=== PATIENT | male | born 1940 | race Caucasian/White ===

== ENCOUNTER 2024-05-11 22:15 | Emergency (ER) | payer MEDICARE, SELFPAY ==
[2024-05-11 22:21] VITALS: PULSE 64; RESP 18; O2SAT 98
[2024-05-11 22:37] VITALS: BP 180/81; PULSE 76; RESP 20; TEMP 36.6; O2SAT 99
[2024-05-11 22:43] VITALS: BMI 22.8
--- NOTE | 2024-05-11 22:47 | EDNOTE_ITS ---
ED Fall Injury RME/HPI General Chief Complaint: Fall Stated Complaint: FALL, HEAD LAC Time Seen by Provider: 05/11/24 22:42 Arrival date/time: 05/11/24 22:15 RME / HPI RME / HPI Narrative: 84-year-old male [facility] laceration. Patient was walking towards the restroom, and hit sticking metal, resulting into 3 cm gaping laceration to the scalp. Patient denies any LOC denies any headache denies any neck pain denies any fall. Patient is not taking any blood thinner Related Data Home Medications ?Medication ?Instructions ?Recorded ?Confirmed valsartan 320 mg tablet (Diovan) 320 mg PO QDAY #0 tabs 04/14/15 lisdexamfetamine 40 mg capsule 40 mg PO QDAY 03/27/24 03/27/24 Previous Rx's ?Medication ?Instructions ?Recorded chlorthalidone 25 mg tablet 25 mg PO QDAY 30 days #0 tabs 06/25/15 quetiapine 25 mg tablet (Seroquel) 25 mg PO HS PRN withdrawal 03/29/24 symptoms #30 tabs Allergies Allergy/AdvReac Type Severity Reaction Status Date / Time No Known Allergies Allergy Verified 03/26/24 17:57 Review of Systems Review of Systems Narrative Review of Systems: Review of system reviewed and within normal limits except mentioned in HPI ED Exam Narrative Physical exam: VITAL SIGNS: Reviewed. GENERAL APPEARANCE: Alert and interactive, follows commands, no acute distress, HEAD AND FACE: 3 cm gaping laceration, scalp, right temporal area, and forehead ENT: PERRL, pink conjunctivitis, eyelid no trauma, Mucous membrane moist. NECK: Supple, nontender, no nuchal rigidity. CHEST: No tenderness, no crepitus, no paradoxical movement, no retractions. LUNGS: Clear, well ventilated, symmetric, no rales, no wheezing, no ronchi, no stridor, good breath sounds bilaterally. HEART: Regular rate, regular rhythm, no murmur, no gallops. ABDOMEN: Soft, positive bowel sounds, nondistended, no guarding, nontender, no rebound, no masses, RECTAL: Deferred. GENITAL: Deferred. NEUROLOGICAL: Gross motor function intact sensory function intact, Appropriate for age. MUSCULOSKELETAL: low back nontender, full range of motion. EXTREMITIES: Nontender, full range of motion. SKIN: Color pink, dry, no rash, no lacerations, no abrasions, no contusions. LYMPHATICS: Deferred. Course Quality Measures none Orders Category Date Time Status Acetaminophen Tab [Tylenol ES Tab] Med 05/11/24 22:43 Discontinued 500 mg PO X1 ONE Tet,Diphth,Pertuss(Acell)-Tdap [Boostrix Vacc] Med 05/11/24 22:43 Discontinued 0.5 ml IMI .ONCE ONE Vital Signs Vital signs: Vital Signs Temperature 97.9 F 05/11/24 22:37 Pulse Rate 76 05/11/24 22:37 Respiratory Rate 20 05/11/24 22:37 Blood Pressure 180/81 H 05/11/24 22:37 Pulse Oximetry (%) 99 05/11/24 22:37 Oxygen Delivery Method Room Air 05/11/24 22:37 Fall MDM Narrative MDM Narrative:: Wound cleansed with skin cancer, and staple applied. Patient tolerated the procedure well. I applied at least 6 eliceo. Patient received Tylenol and Boostrix Patient data External records reviewed:: None Clinical information provided by:: patient Social determinants that could affect healthcare access:: none Patient has the following chronic illnesses:: Hypertension How is presenting disease/condition affected by chronic disease/condition?: uneffected by Evaluation data The following diagnostics were reviewed and interpreted by me:: other (specify) (None) Lab and/or radiology exams considered but not ordered:: None Interpretation Summary: None Medications / Prescriptions Medications or Prescriptions considered but not ordered:: None Medication administrations:: Medication Administration History Discontinued Medications Acetaminophen (Acetaminophen 500 Mg Tablet) 500 mg PO X1 ONE Stop: 05/11/24 22:44 Diphtheria/Tetanus/Acell Pertussis (Diphth,Pertuss(Acell),Tet Vac 0.5 Ml Vial) 0.5 ml IMi .ONCE ONE Stop: 05/11/24 22:44 Tylenol and Boostrix Consultations Consultation(s) initiated? (list below): No Diagnosis Fall Differential Diagnosis: other (Scalp laceration, scalp contusion, abrasion) Most likely diagnosis given after review of the tests above:: Scalp laceration Admission Indicated Admission indicated?: not indicated Explain why admission is indicated or not indicated:: Stable Admission Request Was there a request for admission?: No Disposition Plan Disposition Plan: Discharge Discharge Attestation Discharge Attestation: The patient was given an opportunity to ask questions and understood the discharge instructions. Discharge instructions specifically effects, indications for sooner follow up or return to the emergency department, and the expected course of current diagnosis. Patient condition: Stable Discharge Plan Plan Patient Disposition: HOME (Self Care) Disposition Comment: stable Prescriptions/Referrals Prescriptions/Med Rec: No Action valsartan [Diovan] 320 MG tablet 320 mg PO QDAY Qty: 0 chlorthalidone 25 MG tablet 25 mg PO QDAY 30 Days Qty: 0 1RF lisdexamfetamine 40 mg Capsule 40 mg PO QDAY quetiapine [Seroquel] 25 mg tablet 25 mg PO HS PRN (Reason: withdrawal symptoms) Qty: 30 0RF Problem List Clinical Impression: Laceration of scalp Patient/Caregiver Discharge Instructions Discharge Activity: activity as tolerated Education Materials: ED Head Injury (Adult) Additional Instructions: Thank you for the opportunity for serving you today. You are stable for discharged . You are advised to: Follow-up with your PCP in 1 to 2 days Return to ED for worsening of symptoms Increase oral fluids Daily dressing with neosporin as needed For removal for removal of eliceo in 7 days Print Language: Maltese Stand Alone Forms: Diann Award Info., Patient Portal Info Letter MARLO/QUINTEN Supervising Physician MARLO/QUINTEN Supervising Physician: MD demetrius
[2024-05-11] MEDS: DIPHTH,PERTUSS(ACELL),TET VAC 0.5 ML VIAL IMi (22:48)
[2024-05-11] MEDS: ACETAMINOPHEN 500 MG TABLET PO (22:48)
--- NOTE | 2024-05-11 22:58 | PC.NURSE ---
CALLED [facility] AND GAVE REPORT TO CONRAD BARRERA.
[2024-05-11 23:05] VITALS: BP 178/77; PULSE 74; RESP 16; TEMP 36.7; O2SAT 99
== END 2024-05-11 23:05 | disposition home or self-care (01) ==
LOC: SERX 05-12 01:38
PROVIDERS: Emergency Provider Emergency Medicine; PCP Family Medicine
DX: S01.01XA Laceration without foreign body of scalp, initial encounter (principal); W22.8XXA Striking against or struck by other objects, initial encounter; Y93.01 Activity, walking, marching and hiking; Y92.129 Unspecified place in nursing home as the place of occurrence of the external cause; Z23 Encounter for immunization
CPT/HCPCS: 12002; 90471; 90715; 99283; A9270

== ENCOUNTER 2024-10-05 07:29 | Day surgery (SDC) | payer MEDICARE, MEDICAID, SELFPAY ==
[2024-10-04 11:07] LABS: Basophils % (Auto) 0 % (0-2.5); Eosinophils # (Auto) 0.2 Thou/mm3 (0.0-0.5); Eosinophils % (Auto) 3 % (0-10); Hematocrit 34.4 % (41.0-53.0); Hemoglobin 11.9 g/dL (13.5-16.0); Immature Granulocytes % (Auto) 0 % (0-0); Immature Granulocytes Auto 0.01 Thou/mm3 (0.00-0.00); Lymphocytes % (Auto) 18 % (10-50); Mean Corpuscular HGB Conc 34.6 g/dl (31.0-37.0); Mean Corpuscular Hemoglobin 31.1 pg (25.0-35.0); Mean Corpuscular Volume 90 fL (80-100); Monocytes # (Auto) 0.8 Thou/mm3 (0.0-0.8); Monocytes % (Auto) 15 % (0-12); Neutrophils # (Auto) 3.5 Thou/mm3 (1.8-7.7); Neutrophils % (Auto) 63 % (37-80); Nucleated Red Blood Cell % 0 /100 WBC (0); Platelet Count 222 Thou/mm3 (140-440); RDW Standard Deviation 47.8 fL (35.1-43.9); Red Blood Count 3.83 Miln/mm3 (4.50-5.90); White Blood Count 5.6 Thou/mm3 (3.8-10.6)
[2024-10-04 11:15] LABS: INR 1.1 (0.9-1.3); Partial Thromboplastin Time 30.4 Seconds (22.0-36.0); Prothrombin Time 12.1 Seconds (9.0-12.2)
[2024-10-04 11:19] LABS: Anion Gap 10 (7-16); BUN/Creatinine Ratio 24 Ratio (12-20); Blood Urea Nitrogen 24 mg/dL (9-23); Calcium 9.2 mg/dL (8.3-10.6); Carbon Dioxide 25.4 mMol/L (20.0-31.0); Chloride 105 mMol/L (98-107); Glucose 98 mg/dL (74-106); Osmolality,Calculated 283 (275-295); Sodium 140 mMol/L (136-145); eGFR > 60 See Note
[2024-10-05] VITALS (12 sets, daily range): BP systolic 123–193; BP diastolic 77–119; PULSE 65–94; RESP 16–24; TEMP 36.4–37.1; O2SAT 99–100
[2024-10-05] MEDS: NALOXONE INJ 0.4 MG/ML VIAL IV (11:14)
[2024-10-05] MEDS: FLUMAZENIL INJ 0.1 MG/ML VIAL 10 ML 0.2 MG IVP (11:19)
--- NOTE | 2024-10-05 11:45 | PC.NURSE ---
1111 patient post pacemake inserted by Dr. Rangel, dressing to left chest dry with no bleeding or hematoma, patient is awake alert, breathing unlabored, oxygen prove placed in multiple parts of body including multiple fingers, ear and forehead, unable to obtain good [id number] waveform, Dr. Rangel at bedside and aware. 1114 narcan 0.4mg x1 dose ordered by and given by Mitch SALAZAR 1119 flumazenil 0.2mg x1 dose ordered by and given by Mitch SALAZAR 1128 Respiratory therapist has been called to assess patient and are at bedside, O2 probe on toes reading 100%, Oxygen decreased from 15L to 5L oxygen. Report has been received from Mitch SALAZAR, patient to recover for 2-3 hours. Ancef 1g to be given in recovery 1145 patient awake, alert, breathing unlabored, 100% O2 saturation in room air
[2024-10-05] MEDS: ceFAZolin/D5W 1 GM IVPB 1 GM/50 ML BAG IV (12:21)
--- NOTE | 2024-10-05 13:30 | PC.NURSE ---
1250 patient awake, alert, breathing unlabored, dressing dry with no bleeding, vital signs stable, report given to Apple SALAZAR 1330 report received from Apple SALAZAR, caregiver at bedside
--- NOTE | 2024-10-05 13:35 | PC.NURSE ---
patient awake, alert, breathing unlabored, dressing to left upper chest dry with no bleeding, O2 saturation 100% room air with no shortness of breath or difficulty breathing. Dr. Rangel updated on patient condition, ok to discharge patient home
--- NOTE | 2024-10-05 14:00 | PC.NURSE ---
1400 patient is awake, alert, breathing unlabored, dressing dry with no bleeding, vital signs within pre op parameters, O2 saturation 100% in room air. Discharge instructions given to [facility] caregiver present at bedside, patient discharged home in personal wheelchair accompanied by caregiver. Ancef antibiotic completed.
--- NOTE | 2024-10-05 19:43 | ESOP_ITS ---
RE: ROLO REECE : 1940 DATE OF OPERATION: 10/05/2024 PROCEDURES PERFORMED: Dual chamber permanent pacemaker generator change out and conscious sedation monitoring. INDICATIONS FOR PROCEDURE: The patient with history of previous permanent pacemaker implantation and the patient is totally dependent on the pacemaker. During the routine check, he was noted to have end-of-life parameters of the pacemaker. DETAILS OF THE PROCEDURE: After explaining the procedure in detail to the patient and after obtaining appropriate consent, the patient was given intravenous Versed and intravenous fentanyl as premedication. The left subclavian area was prepped with antiseptic solution. Local anesthetic 2% lidocaine was used and an oblique incision 5 cm in length was made in the left subclavian area. Subcutaneous tissues were dissected and pacemaker pocket was opened. The generator was taken out of the pocket. The leads were unscrewed and were tested and as the leads were working satisfactorily, new pacemaker generator was quickly tied to the leads and put back in the pocket. The pocket was irrigated with IV Ancef solution. Subcutaneous tissue was closed with 2-0 chromic SH catgut continuous sutures and skin was closed with eliceo. The patient tolerated the procedure very well without any complication. The patient did have hypoxemia at the end of the procedure and required intravenous Narcan as well as intravenous Romazicon. intravenous Romazicon. The pacemaker data obtained is as follows: The atrial lead threshold potential is 1.25 V with a lead resistance of 456 ohms and P-wave amplitude of 5.1 mV. The ventricular lead threshold potential obtained is 1.0 V and lead resistance of 475 ohms. R wave amplitude could not be measured as the patient is totally dependent on the pacemaker. The pacemaker generator use is Jenny XT DR ISABELLA Collado, serial number [id number]. The pacemaker mode is set in DDD mode with lower rate at 60 per minute and upper activity rate at 130 beats per minute. cc: Luis Smith MD DT: 11:24:30 TT: 17:53:00 Ref: [id number] - TID: [id number]
== END 2024-10-05 14:00 | disposition home or self-care (01) ==
PROVIDERS: PCP Family Medicine; Referring Provider Internal Medicine Cardiovascular Disease; Visit Provider Internal Medicine Cardiovascular Disease
PROC: (CPT 33228; principal; 2024-10-05 09:00)
DX: Z45.010 Encounter for checking and testing of cardiac pacemaker pulse generator [battery] (principal); I10 Essential (primary) hypertension
CPT/HCPCS: 33228; 36415; 80048; 85025; 85610; 85730; 99152; 99153; A4649; C1785; J0171; J0461; J0689; J2250; J2310; J2371; J3010; J3490

== ENCOUNTER 2025-01-13 16:40 | Emergency (ER) | payer MEDICARE, MEDICAID, SELFPAY ==
[2025-01-13 17:01] VITALS: BP 152/49; PULSE 65; RESP 18; TEMP 36.4; O2SAT 95
[2025-01-13 17:02] VITALS: PULSE 82; O2SAT 99
--- NOTE | 2025-01-13 17:12 | XR_ITS ---
Examination: AP chest single view Technique: AP portable semiupright chest single view. Date and time: January 13, 2025, 1759 hrs., Comparison March 24, 2024. Indications: Patient fell today with injury to the chest, chest pain. Findings: Mild enlargement cardiac contour. Cardiac leads satisfactory position. No pneumothorax or pulmonary contusion. Clavicles ribs appear intact. Impression: No pneumothorax, pulmonary contusion or hemothorax..
--- NOTE | 2025-01-13 17:12 | XR_ITS ---
Examination: CT brain head without contrast. 2-D sagittal coronal reconstructions Date and time of exam:January 13, 2025, 1839 hrs. Indications: Patient fell today with injury to the head, followed by head pain altered mental status. CTDI: vol (mGy):50.9. DLP: (mGycm):1009. Technique: Multiple CT axial sections of the brain have been obtained, 5 mm slice thickness. Contrast has not been administered. 2-D sagittal, coronal reconstructions have been obtained Low dose protocols were performed. One or more of the following dose reduction techniques were used; automated exposure control, adjustment of the mA and/or KV according to patient size, use of iterative reconstruction technique. Findings: Mild to moderate ventricular enlargement. Intra-axial or extra-axial hemorrhage density is not seen. No mass effect or midline shift Basal cisterns are not remarkable. Fourth ventricle is midline. Cranial vault intact. Impression: Negative for acute hemorrhage, mass effect or midline shift
--- NOTE | 2025-01-13 17:12 | XR_ITS ---
Examination: AP pelvis single view. Technique one AP portable supine pelvis single view. Date and time: January 13, 2025, 1801 hrs. Indications: Patient fell today with injury to the pelvis, pelvic pain. Findings: Healed right hip fracture. No acute hip fracture or hip dislocation. Bones of the pelvis intact Impression: No acute hip or pelvic fracture. If pain persists, recommend 1-2 day follow-up AP, pelvis.
--- NOTE | 2025-01-13 17:13 | PD.EDADULT ---
ED General RME/HPI General Chief complaint: Fall Stated complaint: FALL Time Seen by Provider: 01/13/25 17:08 Arrival date/time: 01/13/25 16:40 RME / HPI RME / HPI narrative: 84-year-old male patient with significant history of dementia, hypertension, was brought in by EMS for evaluation after patient was noted to be found in the floor. No bilaterally see what happened. On my initial evaluation patient is only alert and oriented x 2, according to EMS that is his baseline. Patient complaining of pain all over. Moving the extremity without any limitation. Patient is not take any blood thinner. Related Data Home Medications ?Medication ?Instructions ?Recorded ?Confirmed valsartan 320 mg tablet (Diovan) 320 mg PO QDAY #0 tabs 04/14/15 10/05/24 lisdexamfetamine 40 mg capsule 40 mg PO QDAY 03/27/24 10/05/24 docusate sodium 100 mg capsule 100 mg PO QDAY 10/05/24 10/05/24 (Colace) hydrocodone 5 mg-acetaminophen 325 1 tab PO Q6H PRN pain 10/05/24 10/05/24 mg tablet ibuprofen 600 mg tablet 600 mg PO Q6H PRN pain 10/05/24 10/05/24 magnesium hydroxide 400 mg/5 mL 5 ml PO QDAY PRN constipation 10/05/24 10/05/24 oral suspension (Milk of Magnesia) Previous Rx's ?Medication ?Instructions ?Recorded chlorthalidone 25 mg tablet 25 mg PO QDAY 30 days #0 tabs 06/25/15 quetiapine 25 mg tablet (Seroquel) 25 mg PO HS PRN withdrawal 03/29/24 symptoms #30 tabs Allergies Allergy/AdvReac Type Severity Reaction Status Date / Time No Known Allergies Allergy Verified 10/05/24 08:43 Review of Systems Review of Systems Narrative Review of Systems: Review of system reviewed and within normal limits except mentioned in HPI ED Exam Narrative Physical exam: VITAL SIGNS: Reviewed. GENERAL APPEARANCE: Alert and oriented x 2, follows simple commands, no acute distress, HEAD AND FACE: Non-traumatic. ENT: PERRL, pink conjunctivitis, eyelid no trauma, Mucous membrane moist. NECK: Supple, nontender, no nuchal rigidity. CHEST: No tenderness, no crepitus, no paradoxical movement, no retractions. LUNGS: Clear, well ventilated, symmetric, no rales, no wheezing, no ronchi, no stridor, good breath sounds bilaterally. HEART: Regular rate, regular rhythm, no murmur, no gallops. ABDOMEN: Soft, positive bowel sounds, nondistended, no guarding, nontender, no rebound, no masses, RECTAL: Deferred. GENITAL: Deferred. NEUROLOGICAL: Gross motor function intact sensory function intact, Appropriate for age. MUSCULOSKELETAL: low back nontender, full range of motion. EXTREMITIES: Nontender, full range of motion. SKIN: Color pink, dry, no rash, no lacerations, no abrasions, no contusions. LYMPHATICS: Deferred. Course Quality Measures none Orders Category Date Time Status EKG (ED ONLY) *Do not use* NOW Care 01/13/25 17:[address] head/brain wo con Stat Exams 01/13/25 17:12 Completed EKG (ED Only) Stat Exams 01/13/25 17:15 Draft XR chest 1V Stat Exams 01/13/25 17:12 Completed XR pelvis 1-2V Stat Exams 01/13/25 17:12 Completed CBC Stat Lab 01/13/25 17:46 Completed Comprehensive Metabolic Panel Stat Lab 01/13/25 17:46 Completed Partial Thromboplastin Time Stat Lab 01/13/25 17:46 Completed Troponin I Stat Lab 01/13/25 17:46 Completed Urinalysis, C/S if Indicated Stat Lab 01/13/25 17:43 Completed Acetaminophen Tab [Tylenol ES Tab] Med 01/13/25 17:51 Discontinued 1,000 mg PO X1 ONE LORazepam [Ativan] Med 01/13/25 17:50 Discontinued 1 mg PO X1 ONE Vital Signs Vital signs: Vital Signs Temperature 97.5 F 01/13/25 17:01 Pulse Rate 65 01/13/25 17:01 Respiratory Rate 18 01/13/25 17:01 Blood Pressure 152/49 H 01/13/25 17:01 Pulse Oximetry (%) 95 01/13/25 17:01 Oxygen Delivery Method Room Air 01/13/25 17:01 Discharge Plan Plan Patient Disposition: HOME (Self Care) Discharge Disposition comment: Stable Prescriptions/Referrals Prescriptions/Med Rec: No Action valsartan [Diovan] 320 MG tablet 320 mg PO QDAY Qty: 0 chlorthalidone 25 MG tablet 25 mg PO QDAY 30 Days Qty: 0 1RF lisdexamfetamine 40 mg Capsule 40 mg PO QDAY quetiapine [Seroquel] 25 mg tablet 25 mg PO HS PRN (Reason: withdrawal symptoms) Qty: 30 0RF docusate sodium [Colace] 100 mg capsule 100 mg PO QDAY hydrocodone-acetaminophen 5-325 mg tablet 1 tab PO Q6H PRN (Reason: pain) ibuprofen 600 mg tablet 600 mg PO Q6H PRN (Reason: pain) magnesium hydroxide [Milk of Magnesia] 400 mg/5 mL suspension 5 ml PO QDAY PRN (Reason: constipation) Referrals: Kofi([facility])Lady MD [Primary Care Provider] - In 1 week Problem List Clinical Impression: Fall Patient/Caregiver Discharge Instructions Discharge Activity: activity as tolerated Education Materials: Exercises to Prevent Falls Additional Instructions: Thank you for the opportunity for serving you today. You are stable for discharged . You are advised to: Follow-up with your PCP in 1 to 2 days Return to ED for worsening of symptoms Increase oral fluids All your test today all came back normal including CT scan of the head, chest x-ray and pelvic x-ray, laboratory workup, urinalysis all came back unremarkable. Print Language: Angolan Stand Alone Forms: Diann Award Info., Patient Portal Info Letter MARLO/QUINTEN Supervising Physician MARLO/QUINTEN Supervising Physician: MD Luke [facility] Narrative [facility] hospital course: 84-year-old male patient with significant history of dementia, hypertension, was brought in by EMS for evaluation after patient was noted to be found in the floor. No bilaterally see what happened. On my initial evaluation patient is only alert and oriented x 2, according to EMS that is his baseline. Patient complaining of pain all over. Moving the extremity without any limitation. Patient is not take any blood thinner. CT scan of the head came back unremarkable, chest x-ray pelvic x-ray, laboratory workup, urinalysis NORMAL. Patient stable [facility] to [facility]. Medication Administration(s) Medication Administration History Discontinued Medications Acetaminophen (Acetaminophen 500 Mg Tablet) 1,000 mg PO X1 ONE Stop: 01/13/25 17:52 Last Admin: 01/13/25 18:07 Dose: 1,000 mg Documented By: EF Lorazepam (Lorazepam 0.5 Mg Tablet) 1 mg PO X1 ONE Stop: 01/13/25 17:51 Last Admin: 01/13/25 18:07 Dose: 1 mg Documented By: MARCOS
--- NOTE | 2025-01-13 17:15 | EKG_ITS ---
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
[2025-01-13 17:55] LABS: Collection Type, Urine Clean Catch
[2025-01-13] MEDS: ACETAMINOPHEN 500 MG TABLET 1000 MG PO (18:07)
[2025-01-13 18:21] LABS: Basophils # (Auto) 0.0 Thou/mm3 (0.0-0.2); Basophils % (Auto) 0 % (0-2.5); Eosinophils # (Auto) 0.5 Thou/mm3 (0.0-0.5); Eosinophils % (Auto) 5 % (0-10); Hematocrit 36.3 % (41.0-53.0); Hemoglobin 12.3 g/dL (13.5-16.0); Immature Granulocytes Auto 0.04 Thou/mm3 (0.00-0.00); Lymphocytes # (Auto) 1.7 Thou/mm3 (1.0-4.8); Lymphocytes % (Auto) 17 % (10-50); Mean Corpuscular HGB Conc 33.9 g/dl (31.0-37.0); Mean Corpuscular Hemoglobin 31.4 pg (25.0-35.0); Mean Corpuscular Volume 93 fL (80-100); Monocytes # (Auto) 1.3 Thou/mm3 (0.0-0.8); Monocytes % (Auto) 14 % (0-12); Neutrophils # (Auto) 6.1 Thou/mm3 (1.8-7.7); Neutrophils % (Auto) 63 % (37-80); Nucleated Red Blood Cell # 0.00 Thou/mm3 (0.00-0.00); Nucleated Red Blood Cell % 0 /100 WBC (0); Partial Thromboplastin Time 28.4 Seconds (22.0-36.0); Platelet Count 177 Thou/mm3 (140-440); RDW Standard Deviation 50.9 fL (35.1-43.9); Red Blood Count 3.92 Miln/mm3 (4.50-5.90); White Blood Count 9.8 Thou/mm3 (3.8-10.6)
[2025-01-13 18:25] LABS: Alanine Aminotransferase 11 U/L (10-49); Albumin, Serum 4.0 gm/dL (3.4-4.8); Albumin/Globulin Ratio 1.2 (1.2-2.2); Alkaline Phosphatase 114 U/L (46-116); Anion Gap 11 (7-16); Aspartate Amino Transferase 22 U/L (0-34); BUN/Creatinine Ratio 25 Ratio (12-20); Bilirubin,Total 0.5 mg/dL (0.3-1.2); Blood Urea Nitrogen 32 mg/dL (9-23); Calcium 10.2 mg/dL (8.3-10.6); Calcium (Corrected) 10.2 mg/dL (8.5-10.1); Carbon Dioxide 23.5 mMol/L (20.0-31.0); Chloride 115 mMol/L (98-107); Creatinine (Component) 1.3 mg/dL (0.6-1.3); Globulin 3.4 gm/dL (2.3-3.5); Glucose 92 mg/dL (74-106); Osmolality,Calculated 303 (275-295); Potassium 4.4 mMol/L (3.4-5.1); Sodium 149 mMol/L (136-145); Total Protein 7.4 gm/dL (5.7-8.2); Troponin I 0.038 ng/mL (0.0-0.045); eGFR 54 See Note
[2025-01-13 18:33] LABS: Bilirubin,Urine Negative (Negative); Blood,Urine Trace (Negative); Clarity,Urine Clear (Clear/Hazy); Color,Urine Lt-Yellow (Lt Yel-Yel); Culture Indicated,Urine Not Indicated; Glucose, Urine Negative (Negative); Hyaline Casts,Urine < 1 /hpf (0-1); Ketones,Urine Negative (Negative); Leukocyte Esterase,Urine Negative (Negative); Nitrite,Urine Negative (Negative); PH,Urine 5.5 (5.0-7.0); Protein,Urine Trace (Neg - Trace); RBC,Urine 3 /hpf (0-3); Specific Gravity,Urine 1.024 (1.001-1.035); Squamous Epithelial Cell,Urine < 1 /hpf (0-5); Urobilinogen,Urine Negative mg/dL (0.0-1.0); WBC,Urine 2 /hpf (0-5)
[2025-01-13 19:09] VITALS: BP 104/90; PULSE 93; RESP 18; TEMP 36.5; O2SAT 98
[2025-01-13 22:04] VITALS: BP 166/82; PULSE 87; RESP 18; O2SAT 96
--- NOTE | 2025-01-13 22:17 | PC.NURSE ---
report called to [facility] from [facility] via telephone
== END 2025-01-13 22:19 | disposition home or self-care (01) ==
PROVIDERS: Nurse Practitioner Family; Emergency Provider Emergency Medicine; PCP Hospitalist
DX: S39.93XA Unspecified injury of pelvis, initial encounter (principal); S29.9XXA Unspecified injury of thorax, initial encounter; S09.90XA Unspecified injury of head, initial encounter; R94.31 Abnormal electrocardiogram [ECG] [EKG]; I10 Essential (primary) hypertension; F03.90 Unspecified dementia, unspecified severity, without behavioral disturbance, psychotic disturbance, mood disturbance, and anxiety; W19.XXXA Unspecified fall, initial encounter; Z95.0 Presence of cardiac pacemaker
CPT/HCPCS: 36415; 70450; 71045; 72170; 80053; 81001; 84484; 85025; 85730; 93005; 99284; A9270